=== PATIENT | male | born 1960 | race American Indian/Alaskan Native ===

== ENCOUNTER 2017-11-07 10:31 | Day surgery (SDC) | payer OTHER ==
[~2017-11-07 10:31] MED LIST: DILAUDID IV PRN; DILAUDID ONE; DIPRIVAN 10 MG/ML IV ONE; LACTATED RINGERS 1,000 ML IV SCH; VERSED IV NR; WATER FOR IRRIG STERILE IR ONE; XYLOCAINE MPF 2% ONE; ZOFRAN IV PRN; ZOFRAN ONE
--- NOTE | 2017-11-07 11:38 | Anesthesia Consultation ---
Anesthesia Consult and Med Hx Date of service: 11/07/17 - Airway Anesthetic Teeth Evaluation: Good ROM Head & Neck: Adequate (bearded) Mental/Hyoid Distance: Adequate Mallampati Class: Class III Intubation Access Assessment: Possibly Difficult - Pulmonary Exam CTA: Yes - Cardiac Exam Cardiac Exam: No Murmur - Pre-Operative Health Status ASA Pre-Surgery Classification: ASA3 Proposed Anesthetic Plan: General - Pulmonary Hx Smoking: Yes (/ PPD X 36 YRS) Hx Asthma: No Hx Respiratory Symptoms: No SOB: No Hx Sleep Apnea: No (PATRICIA PRE SCREEN HIGH RISK) - Cardiovascular System Hx Hypertension: Yes (X 6 YRS; took losartan and amlodipine this morning) Hx Heart Attack/AMI: No Hx Cardia Arrhythmia: No Hx Peripheral Vascular Disease: No - Central Nervous System Hx Neuromuscular Disorder: No Hx Seizures: No CVA: No - Gastrointestinal Hx Gastroesophageal Reflux Disease: Yes (well controlled, asymptomatic today) - Endocrine Hx Renal Disease: No Hx Liver Disease: No Hx Insulin Dependent Diabetes: No Hx Non-Insulin Dependent Diabetes: No Hx Thyroid Disease: No - Other Systems Hx Cancer: No - Additional Comments Anesthesia Medical History Comments: PMH HTN, smoking, GERD, and BPH scheduled for cysto with prostate biopsy. No prior anesthetic complications.
--- NOTE | 2017-11-07 11:38 | Anesthesia Day of Surgery ---
Anesthesia Day of Surgery - Day of Surgery Patient Examined: Yes Patient H&P Reviewed: Yes Patient is NPO: Yes Beta Blockers: No (N/A)
[2017-11-07] MEDS ORDERED: PEPCID IV ONE (12:08)
[2017-11-07] MEDS ORDERED: ANCEF/STERILE WATER 2 GM/20 ML 2 GM/20 ML SYRINGE IV NR (12:30)
[2017-11-07] MEDS ORDERED: WATER FOR IRRIG STERILE IR ONE (12:50)
[2017-11-07] MEDS ORDERED: SUBLIMAZE ONE (13:00)
[2017-11-07] MEDS ORDERED: GARAMYCIN/NS 120MG/100ML 120 MG/100 ML BAG IV ONE (13:06)
[2017-11-07] MEDS ORDERED: PROAIR IH ONE (13:07)
--- NOTE | 2017-11-07 13:35 | Discharge Summary ---
Short Stay Discharge Plan Activity: other (no straining ) Weight Bearing Status: Full Weight Bearing Diet: low cholesterol, low salt Special Instructions: other (inc fluids ) Durable Medical Equipment Needed Upon Discharge: other (novak ) Follow up with: KAVIN BROOKS MD [Primary Care Provider] - 7 Days EBRRY NEIL MD [Staff Physician] - 11/08/17
--- NOTE | 2017-11-07 13:35 | Post Operative Note ---
Date of procedure: 11/07/17 Pre-op diagnosis: inc psa Post-op diagnosis: same Findings: large gland Procedure: cysto pus bx Anesthesia: GETA Surgeon: BERRY NEIL Estimated blood loss: minimal Pathology: list (prostate) Specimen disposition: to lab Condition: stable Disposition: PACU
--- NOTE | 2017-11-07 14:44 | Ultrasound Report ---
ULTRASOUND GUIDE INTRAOPERATIVE History: Elevated PSA. Findings: Transrectal ultrasound guidance was provided by radiology during prostate biopsy by Dr. Sapp. The prostate measures 6.3 x 4.4 x 6.0 cm with a prostate volume of 86 cc. Impression: Successful prostate biopsy under ultrasound guidance by urology.
[2017-11-07 15:06] VITALS: BP 127/82
--- NOTE | 2017-11-07 15:18 | Operative Report ---
PREOPERATIVE DIAGNOSIS: Increasing PSA over 11, history of prostate and intraepithelial neoplasia, very enlarged prostate. POSTOPERATIVE DIAGNOSIS: Increasing PSA over 11, history of prostate and intraepithelial neoplasia, very enlarged prostate. PROCEDURE: Flexible cystoscopy, insertion of Brooks catheter and transrectal prostate needle biopsy. SURGEON: Stoney Sapp MD ANESTHESIA: General. FINDINGS: This is a gentleman with a large prostate, increasing PSA. He wanted to do this under anesthesia. We talked about fusion biopsy. There is a possible 4 mm lesion at the base. He wanted to do it down here. He now presents for prostate needle biopsy. DESCRIPTION OF PROCEDURE: The patient was brought to the operating room and placed on the operating table. Following induction of anesthesia, the patient was placed in lithotomy position, prepped and draped in usual sterile fashion. Flexible cystoscopy showed a long prostate approximately 5.5 to 6 cm. There was some intravesical component. The bladder was not very trabeculated. The Brooks catheter was placed. He had a large amount of urine in there. At this point, the ultrasound was placed. He had some external hemorrhoids. The gland was quite large and can be seen by the measurements. The prostate was well visualized. There were areas of cystic changes in the gland and atrophic changes as was seen on previous biopsies. Biopsies 6 on the right, 6 on the left, but we doubled up on the base with a lesion measured from the apex 1.9 cm. The patient tolerated the procedure well. There was some bleeding from probably one of the hemorrhoids. We put some Bo and the plug. The patient tolerated the procedure well and brought to recovery in stable condition. JOB# [id number] ANURAG/NAKITA
--- NOTE | 2017-11-07 16:06 | Post Anesthesia Evaluation ---
- Post Anesthesia Evaluation Patient Participated: Yes Airway Patent: Yes Stable Respiratory Function: Yes Nausea/Vomiting: No Temp > 96.8F: Yes Pain Manageable: Yes Adequeate Hydration: Yes Anesthesia Complications: Yes Block Receding Appropriately: Not Applicable
== END 2017-11-07 15:24 | disposition home or self-care (01) ==
LOC: OR 10:31
PROVIDERS: ATTEND Urology
DX: N40.0 Benign prostatic hyperplasia without lower urinary tract symptoms (principal); F17.210 Nicotine dependence, cigarettes, uncomplicated; I10 Essential (primary) hypertension; K21.9 Gastro-esophageal reflux disease without esophagitis; Z85.46 Personal history of malignant neoplasm of prostate
CPT/HCPCS: 55700; 76872; 88305; A4217; J1170; J1580; J2250; J2405; J2704; J3010; J7120; 76998